=== PATIENT | male | born 1960 | race Caucasian/White ===

== ENCOUNTER → 2017-12-14 12:16 | Outpatient (CLI) | payer OTHER, SELFPAY | PROVIDERS: Family Provider Nurse Practitioner; PCP Nurse Practitioner; Visit Provider Radiology Radiation Oncology | DX: C01 Malignant neoplasm of base of tongue (principal); C77.0 Secondary and unspecified malignant neoplasm of lymph nodes of head, face and neck; C02.8 Malignant neoplasm of overlapping sites of tongue | CPT/HCPCS: 77014; Q9967 ==

== ENCOUNTER 2018-01-24 11:54 | Emergency (ER) | payer OTHER, SELFPAY ==
[2018-01-24] VITALS (7 sets, daily range): BP systolic 105–135; BP diastolic 67–79; PULSE 41–71; RESP 12–16; TEMP 35.9; O2SAT 97–99; BMI 40.9
--- NOTE | 2018-01-24 12:27 | RAD_ITS ---
STUDY: X-RAY CHEST REASON FOR EXAM: Male, 57 years old. Syncope. TECHNIQUE: Single AP portable view of the chest. COMPARISON: None. FINDINGS: EKG electrodes are seen. The lungs are clear and expanded. Blunting of the left costophrenic angle. Normal size heart. Normal mediastinum and denia. Normal visualized pulmonary arteries. Normal visualized aortic arch and descending thoracic aorta. There are diffuse degenerative changes of the visualized thoracic spine. Healed left rib fractures. There is no demonstrated abnormality of the visualized soft tissue structures of the upper abdomen. RAD/Chest 1 View (Portable) IMPRESSION: No acute abnormality is seen. Electronically Signed: Berhane Stone MD at 13:32 EDT Tel [phone], Service support ,
--- NOTE | 2018-01-24 12:27 | EKG12_ITS ---
Test Reason : Blood Pressure : / mmHG Vent. Rate : 047 BPM Atrial Rate : 047 BPM P-R Int : 144 ms QRS Dur : 110 ms QT Int : 448 ms P-R-T Axes : 028 -08 005 degrees QTc Int : 396 ms Sinus bradycardia Otherwise normal ECG Confirmed by PRECIOUS HI ([id number]), editorial clerk TRE MONSIVAIS ([id number]) on 01/27/2018 2:34:26 PM Referred By: LILIANA Confirmed By:PRECIOUS HI
[2018-01-24] MEDS: 0.9% Normal Saline 1,000 ML 1000 ML IV (12:36)
[2018-01-24 12:54] LABS: Hematocrit 37.7 % (40-54); Hemoglobin 13.2 g/dl (13.0-16.5); Mean Corpuscular Volume 88.5 fL (80-94); Mean Platelet Vol. 9.4 fl (6.2-12.0); Platelet Count 150 K/mm3 (150-450); RBC Distribution Width CV 14.7 % (11.6-14.6); RBC Distribution Width SD 45.5 fl (35.1-43.9); Red Blood Count 4.26 M/mm3 (4.6-6.2); White Blood Count 4.7 K/mm3 (4.4-11.0)
[2018-01-24 12:58] LABS: Anion Gap 9 (5-15); BUN 15 mg/dL (7-18); BUN/Creat Ratio 12.7 RATIO (10-20); Calcium,Total 8.9 mg/dL (8.5-10.1); Chloride 96 mmol/L (98-107); Creatinine, Serum 1.18 mg/dL (0.70-1.30); EST Glomerular Filtration Rate 68 mL/min (>60); Est Glom Filt Rate - Afr Amer 82 mL/min (>60); Estimated Creatinine Clearance 63.08 ml/min; Glucose 88 mg/dL (74-106); Magnesium 1.9 mg/dL (1.6-2.6); Potassium 3.4 mmol/L (3.5-5.1); Sodium Level 137 mmol/L (136-145); Thyroid Stim Hormone (TSH) 1.66 uIU/mL (0.358-3.74)
[2018-01-24 12:59] LABS: Differential Indicated MANUAL DIFF; POSITIVE COUNT YES; POSITIVE DIFFERENTIAL YES; POSITIVE MORPHOLOGY YES
[2018-01-24 13:18] LABS: Lymphocyte 8 % (19-41); Monocyte 14 % (0-10); Myelocyte 1 (0-0); Neutrophil-Segmented 77 % (47-70); Platelet Estimate ADEQUATE (ADEQ); Total Cells Counted 100 (MANUAL DIFF)
[2018-01-24 13:19] LABS: Red Cell Morphology NORM C+C NORMAL (NORM C&C)
[2018-01-24 13:20] LABS: Absolute Lymphocyte Count 0.38 X10^3/ul (0.83-4.51); Absolute Neutrophil Count 3.6 X10^3/uL (2.0-7.7)
[2018-01-24] MEDS: 0.9% Normal Saline 1,000 ML 999 ML IV (15:42)
--- NOTE | 2018-01-24 16:05 | ED.VISSUMM ---
- ER Visit Summary Date of Service: 01/24/18 Chief Complaint: Syncope History of Present Illness: The patient is a 57 M sees Ivy Jorgemingo and Dr. Flynn. Patient reports that 5 days ago he was leaning against his truck and had been standing for approximately 1 hour. He began feeling lightheaded and he had a syncopal episode. He denies any associated nausea, diaphoresis, palpitations, shortness of breath, or chest pain. He did not have any seizure activity. No tongue biting or incontinence. Patient reports that since that time he does remain lightheaded and it increases when he stands. Of note he finished chemotherapy and radiation therapy 3 weeks ago for tongue cancer. He reports that he has been taking much less than usual p.o. States he has been nippling for the past 3 days. He has been getting IV fluids at the cancer center. Physical Examination: Vitals: 96.6, 130/78, 44, 16, 97 cm hypoxic. General: Well-nourished and well-developed. Head: Normocephalic atraumatic. Neck: Supple, no lymphadenopathy. No JVD. Nontender. Cardiovascular: Bradycardic regular rhythm. No murmurs. Respiratory: No respiratory distress. Clear to auscultation bilaterally. Abdominal: Soft, nontender, nondistended, normal bowel sounds. No guarding, rebound, or peritoneal signs. Back: Nontender. Extremities: Nontender, no edema. Skin: Normal color, no rash. Neurologic: Alert and oriented ?3. Cranial nerves II through XII are intact. Normal strength and sensation. Psych: Normal affect. Test Results: EKG is sinus bradycardia at 47 which is the only change from last September. Troponin 0 0.05. TSH is normal. Magnesium is normal. Chem-7 her potassium 3.4 chloride 96. CBC is marked for hematocrit 37.7, segmented neutrophils 77, leukocytes of 8. Chest x-ray shows no acute disease. Emergency Department Course and Treatment: Patient was given 2 L of normal saline. He did have positive orthostatic vital signs. His blood pressure decreased from 119/67 to 105/70 going from lying to standing. His heart rate increased from 48-71 going from lying to standing. Treatment Plan: Patient was discussed with Dr. Trujillo who does not feel that this is a cardiac problem. The patient does not need to have a pacemaker. He suggested the patient follow-up with his primary care physician and oncology to continue to get IV fluids while he is having a difficult time taking oral fluids. This was discussed with both Ivy Foster and Dr. Flynn. He will get more IV fluids in the cancer center tomorrow. His asked about changing his dose of Norvasc and I do think this is a reasonable course of action. He will have his Norvasc decreased from 10 mg a day to 5 mg a day while he gets over this. Return to the emergency department for any worsening symptoms. Disposition: To home in improved and stable condition. Impression: 1. Sinus bradycardia. 2. History of tongue cancer with poor p.o. intake. 3. Orthostatic hypotension. This note was generated with [employer] dictation software. It may contain incorrect words, spelling, and punctuation that were not noted in review of the chart prior to signing ED Disposition - Plan for ED Patient: Disposition: Home or Assisted Living Chief Complaint: Syncope Instructions: ED Bradycardia, ED Dehydration Prescriptions: Amlodipine [Norvasc] 5 mg PO DAILY #30 tablet Referrals: Ivy Foster [Primary Care Provider] - Tee Flynn MD [NON-STAFF] - 1 Day for another exam
[2018-01-25 13:57] LABS: Pathologist Review Reviewed
== END 2018-01-24 17:50 | disposition home or self-care (01) ==
PROVIDERS: Emergency Provider Emergency Medicine; Family Provider Nurse Practitioner; PCP Nurse Practitioner
DX: R00.1 Bradycardia, unspecified (principal); I95.1 Orthostatic hypotension; C02.9 Malignant neoplasm of tongue, unspecified; I10 Essential (primary) hypertension; Z79.899 Other long term (current) drug therapy; Z85.46 Personal history of malignant neoplasm of prostate; Z90.79 Acquired absence of other genital organ(s)
CPT/HCPCS: 71045; 80048; 83735; 84443; 84484; 85025; 93005; 96360; 96361; 99284; J7030; A4216

== ENCOUNTER → 2018-01-26 14:02 | Outpatient (CLI) | payer OTHER, SELFPAY ==
--- NOTE | 2018-01-26 14:08 | MRI_ITS ---
STUDY: MRI BRAIN WITH AND WITHOUT CONTRAST REASON FOR EXAM: Male, 57 years old. 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 10 ml of Gadavist contrast material was administered intravenously for the contrast portion of the examination. Sag T1 FLAIR Ax DWI Ax T2 PROPELLER Ax T2 FLAIR Ax T1 FSE Ax T2* GRE Cor T2 FSE Apparent Diffusion Coefficient (mm2/s) Exponential Apparent Diffusion Coefficient Ax T1 FSE C+ Cor T1 FSE FAT C+ Ax FSPGR [place] C+ COMPARISON: None. FINDINGS: Normal size of the ventricles and extra-axial spaces for the patient's age. Normal white matter tracts of the supratentorial brain. Normal bilateral basal ganglia. Normal thalami. There is no extra-axial fluid accumulation. Normal flow voids within the major intracranial circulation suggesting patency by spin echo criteria. Normal venous enhancement. There is no enhancing intra-axial or extra-axial abnormality. Normal sella turcica, pituitary gland, infundibular stalk, optic chiasm and hypothalamus. Normal tectal plate and pineal gland. Normal midbrain, gayle and medulla. Normal cerebellum. Normal basal cisterns. Normal bilateral temporal bones. Normal bilateral internal auditory canals. No demonstrated orbital abnormality, within the constraints of a routine brain study. There is mild mucoperiosteal thickening in the inferior left maxillary antrum. Normal calvarium and skull base. Normal visualized soft tissue structures. Normal visualized upper cervical spine. MRI/Brain W/WO Contrast IMPRESSION: Normal unenhanced and enhanced MRI of the brain. Electronically Signed: Gretchen Holden MD at 16:23 EDT Tel , Service support ,
== END ==
PROVIDERS: Family Provider Nurse Practitioner; PCP Nurse Practitioner; Visit Provider Internal Medicine Medical Oncology
DX: R42 Dizziness and giddiness (principal); R55 Syncope and collapse; C10.9 Malignant neoplasm of oropharynx, unspecified; R11.10 Vomiting, unspecified; M62.81 Muscle weakness (generalized); G44.221 Chronic tension-type headache, intractable; H93.19 Tinnitus, unspecified ear
CPT/HCPCS: 70553; A9585

== ENCOUNTER → 2018-02-07 11:56 | Outpatient (CLI) | payer OTHER, SELFPAY ==
--- NOTE | 2018-02-07 12:30 | SP.MBSS_ITS ---
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 Patient reports losing 78lbs since November of this year due to difficulties with intake (reports severe nausea, loss of appetite, dysgeusia, xerostomia, mild odynophagia), though reports that the majority of symptoms have resolved, with exception of mild to moderate xerostomia and mild loss of appetite. Patient reports initial significant dysphagia primarily with solid textures, with reports suggesting oropharyngeal dysmotility, reports occasional coughing (though minimal occurrence at best), with the majority of difficulties centering on appetite and nausea. Patient reports improvement in PO intake over the last week following administration of Promethazine suppository earlier in week, with gradual increase in PO intake quantity throughout week: denies overt signs and symptoms of aspiration. Patient reports no objective assessment of the oropharyngeal swallow function completed to date. 01/26/2018 MRI revealed normal unenhanced and enhanced MRI of the brain. 01/24/2018 CXR revealed no acute abnormality. 10/26/2017 CT/Soft Tissue Neck revealed stable lobulated soft tissue mass at the base of the tongue on the left side with obliteration of the left valleculae and extending into the left epiglottic region; focally enlarged left cervical lymph node. 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 09/17/2017 direct laryngoscopy and biopsy of left base of tongue mass (negative ). 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 STUDY FINDINGS: Patient participated in a Modified Barium Swallow (MBS) study on 02/07/2018. Dr. Gonzalez was the radiologist present for this evaluation. This study was recorded in the lateral view and images were sent to PACs for storage. The following consistencies were presented to this patient for analysis of oropharyngeal swallow function: thin liquids, pudding, and a regular textured, Nicole Doone cookie. Results of the MBS are as follows: PENETRATION / ASPIRATION SCALE (GAN): 1 = does not enter airway 2 = enters airway/above vocal folds/ejected 3 = enters airway/above vocal folds/not ejected 4 = enters airway/contacts vocal folds/ejected 5 = enters airway/contacts vocal folds/not ejected 6 = enters airway/below vocal folds/ejected 7 = enters airway/below vocal folds/not ejected despite effort 8 = enters airway/below vocal folds/no effort PENETRATION / ASPIRATION SCALE (SCORE): Thin liquid - 5 mL tsp.: 1 Thin liquids via cup (sequential swallows): 2 Thin liquids via cup (single sip): 2 Thin liquids via cup (chin tuck): 1 Thin liquids via cup (chin tuck): 2 Thin liquids via cup (chin tuck): 1 Thin liquids via cup (chin tuck): 1 Pudding via spoon: 1 Regular textured cookie: 1 Thin liquids via straw (chin tuck): 1 IMPRESSION: DIAGNOSIS: mild pharyngeal dysphagia (R13.13) ORAL PHASE CHARACTERIZED BY: LABIAL SEAL: no labial escape TONGUE CONTROL DURING BOLUS MANIPULATION: cohesive bolus between tongue to palatal seal BOLUS PREPARATION / MASTICATION: timely and efficient chewing and mashing BOLUS TRANSPORT / LINGUAL MOTION: brisk tongue motion ORAL RESIDUE: trace residue lining oral structures PHARYNGEAL PHASE CHARACTERIZED BY: INITIATION OF PHARYNGEAL SWALLOW: bolus head at posterior laryngeal surface of epiglottis at first hyoid excursion SOFT PALATE ELEVATION: no bolus between soft palate and pharyngeal wall LARYNGEAL ELEVATION: partial superior movement of thyroid cartilage/partial approximation of arytenoids cartilage to epiglottic petiole ANTERIOR HYOID EXCURSION: complete anterior movement EPIGLOTTIC MOVEMENT: complete epiglottic inversion LARYNGEAL VESTIBULE CLOSURE AT HEIGHT OF SWALLOW: complete laryngeal vestibule closure with no air/contrast in laryngeal vestibule PHARYNGEAL STRIPPING WAVE: pharyngeal stripping wave present / complete PHARYNGOESOPHAGEAL SEGMENT OPENING: partial distension and partial duration; partial obstruction of flow TONGUE BASE RETRACTION: trace column of contrast between tongue base and posterior pharyngeal wall PHARYNGEAL RESIDUE: intermittent trace residue within or on pharyngeal structures ESOPHAGEAL PHASE CHARACTERIZED BY: ESOPHAGEAL BOLUS CLEARANCE IN THE UPRIGHT POSITION: complete clearance; esophageal coating EFFECTS OF TREATMENT STRATEGIES ATTEMPTED: Chin tuck posture = effective Reduced bolus size = effective DIET TEXTURE RECOMMENDATIONS: Will recommend a regular textured, thin liquid diet. COMPENSATORY STRATEGIES RECOMMENDED: Chin tuck, reduced bolus volume, seated upright at 90 degrees during PO intake. INTERPRETATION OF RESULTS: Patient presents with mild pharyngeal dysphagia (R13.13) secondary to a recent malignant neoplasm of the oropharynx requiring chemoradiation. Oral phase findings unremarkable. Pharyngeal phase marked by impaired pharyngeal swallow onset timing resulting in suboptimal bolus location upon swallow onset resulting in prandial penetration with thin liquids; adequate closure of the airway during deglutition with mild reduction in laryngeal elevation, though clinically insignificant with sufficient laryngeal vestibule pressure generated to consistently expel penetrated material throughout study. All deficits ameliorated with bolus volume adjustments and execution of the chin tuck posture. No aspiration appreciated throughout trials, unable to definitively rule out silent aspiration, though not suspected. RECOMMENDATIONS: Patient requires 1-2 additional skilled speech-language intervention targeting continued diet texture management; training and implementation of recommended compensatory strategies; and training / implementation of recommended oropharyngeal strengthening exercises to prevent loss of oropharyngeal range of motion status post radiation intervention. Continue to recommend aggressive oral care with regular dental cleanings to promote optimal oral health and reduce aspiration risk. Recommend frequent intake of water with use of oral moisturizers as needed to reduce impact of xerostomia. ADDITIONAL COMMENTS/RECOMMENDATIONS: Results and recommendations were discussed with the Patient immediately following MBS completion, with the Patient verbalizing understanding and agreement with all recommendations and education provided. IMAGE COUNT: [id number] G-CODES: SWALLOWING G8996 Current Status: CI SWALLOWING G8997 Goal Status: CH SWALLOWING G8998 Discharge Status: CI
--- NOTE | 2018-02-07 12:45 | RAD_ITS ---
STUDY: SWALLOWING STUDY REASON FOR EXAM: Male, 57 years old. Dysphagia TECHNIQUE: The examination was performed with Speech Pathology in attendance. Under fluoroscopic observation, the patient ingested thin barium, thick barium, barium pudding, and barium coated cracker. FLUOROSCOPY TIME: 2:00 minutes/seconds RADIOLOGIST INVOLVEMENT: Radiologist was present and providing direct supervision. COMPARISON: None. FINDINGS: The following was observed during swallowing of the various mixtures of barium: Thin Barium: There was no evidence of aspiration. Transient penetration is noted with improved with chin talk maneuvers. Thick Barium: There was no evidence of aspiration or laryngeal penetration. Barium Pudding: There was no evidence of aspiration or laryngeal penetration. Barium Coated Cracker: There was no evidence of aspiration or laryngeal penetration. RAD/Swallowing Function w/Video IMPRESSION: Normal tailored barium swallow study. No evidence of increased risk for aspiration. The swallow study findings were discussed with the patient by the speech pathologist at the conclusion of the examination. Please see speech pathology report for more information and recommendations. The procedure was performed by speech therapist under the direct supervision of myself. Electronically Signed: Franko Gonzalez MD at 14:50 EDT Tel , Service support ,
== END ==
PROVIDERS: Family Provider Nurse Practitioner; PCP Nurse Practitioner; Visit Provider Internal Medicine Medical Oncology
DX: R13.12 Dysphagia, oropharyngeal phase (principal); C10.9 Malignant neoplasm of oropharynx, unspecified
CPT/HCPCS: 74230; 92611

== ENCOUNTER 2018-02-10 14:00 | Outpatient (RCR) | payer OTHER, SELFPAY ==
--- NOTE | 2018-02-03 17:42 | HP.SP.AD ---
History - History Date of Eval: 02/03/18 Referring Doctor: Dr. 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 Smoking Status: Never smoker Hx Smoking: No Hx Tobacco Use: No - Pain Is pain an issue with your current prescribed condition?: No - Personal Education History: 12th grade Right Hearing Abillity: Normal Left Hearing Abillity: Normal Visual Assistive Devices: None Patient Allergies - Allergies Allergies Penicillins Adverse Reaction (Verified 01/27/18 15:52) Other DOES NOT WORK Subjective Oral Motor - Comments Comments: Mild whitish coating along the medial portions of the lingual blade suggestive of oral candidiasis, reports recent treatment with Nystatin, though has discontinued since PO intake has improved. Natural dentition with multiple missing teeth, noted recession with Patient reporting periodontal care initiated prior to chemoradiation. Mild vocal hoarseness noted. Subjective Dysphagia - Symptoms Reported Symptoms/Problems with: Coughing, Difficulty Swallowing Solids, Pain on Swallowing - Current Diet Solids Current Diet: Regular - Current Diet Liquids Current Liquids: Thin Objective Dysphagia - Thin Liquids Administred via: Cup, Straw Comments: Trialed thin liquids, purees, and regular textures. Oral phase: mastication within functional limits; oral transit within functional limits; oral containment within functional limits. Pharyngeal phase: mild reduction in hyolaryngeal excursion suggestive of suboptimal laryngeal vestibule closure / pressure; mild persistent audible swallow possibly indicating suboptimal bolus placement upon swallow onset; intermittent double swallow possibly indication mild impairment in pharyngeal motility; suspect mild pharyngeal impairment. Cannot rule out silent aspiration at bedside. - Results Swallowing Diagnosis: Pharyngeal Phase Dysphagia Severity: Mild Subjective Cancer - Subjective Subjective: Patient is a 57 year old male referred to [facility] Speech Therapy due to concerns with swallowing associated with a malignant neoplasm of the oropharynx (C10.9) located at the left lingual base (stage III; cT2 cN1 M0, 1.5cm) requiring chemoradiation (chemotherapy x3 with Cisplatin IV , radiation x35 sessions since November of this year) and concurrent oropharyngeal dysphagia (R13.12). Patient reports losing 78lbs since November of this year due to difficulties with intake (reports severe nausea, loss of appetite, dysgeusia, xerostomia, mild odynophagia), though reports that the majority of symptoms have resolved, with exception of mild to moderate xerostomia and mild loss of appetite. Patient reports initial significant dysphagia primarily with solid textures, with reports suggesting oropharyngeal dysmotility, reports occasional coughing (though minimal occurrence at best), with the majority of difficulties centering on appetite and nausea. Patient reports improvement in PO intake over the last week following administration of Promethazine suppository earlier in week, with gradual increase in PO intake quantity throughout week: denies overt signs and symptoms of aspiration. Patient reports no objective assessment of the oropharyngeal swallow function completed to date. 01/26/2018 MRI revealed normal unenhanced and enhanced MRI of the brain. 01/24/2018 CXR revealed no acute abnormality. 10/26/2017 CT/Soft Tissue Neck revealed stable lobulated soft tissue mass at the base of the tongue on the left side with obliteration of the left valleculae and extending into the left epiglottic region; focally enlarged left cervical lymph node. 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 09/17/2017 direct laryngoscopy and biopsy of left base of tongue mass (negative). Plan - Plan Plan: Will recommend completion of a modified barium swallow study to objectively assess the Patients oropharyngeal swallow function under fluoroscopy, with further goal development upon completion. - Recommendations MBS: Yes Treatment Warranted: Yes - Frequency Frequency: 1x/Week Duration: 4 Weeks - Prognosis Prognosis: Excellent - Goals that are Established: Determination:: Goals will be added/modified as deemed necessary and appropriate. Therapy will be discontinued when results of re-evaluation indicate therapy is no longer needed or lack of progress has been documented. - Goal #1-5 Goal #1: Pt. will participate in a Modified Barium Swallow (MBS) study to objectively assess the Pt.s oropharyngeal swallowing function, to determine the least restrictive means of nutrition, to objectively assess the effectiveness of previously identified strategies / precautions, and to identify appropriate intervention approaches / strategies to implement during treatment sessions at the supervised level Goal #2: Goal adjustment as needed. Education - Patient Instruction Patient Education: Diagnosis, Treatment Plan, Goals Person Taught: Patient Teaching Method: Discussion Response to teaching: Verbalize understanding
--- NOTE | 2018-02-03 17:45 | HP.SP.AD_ITS ---
History - History Date of Eval: 02/03/18 Referring Doctor: Dr. 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 Smoking Status: Never smoker Hx Smoking: No Hx Tobacco Use: No - Pain Is pain an issue with your current prescribed condition?: No - Personal Education History: 12th grade Right Hearing Abillity: Normal Left Hearing Abillity: Normal Visual Assistive Devices: None Patient Allergies - Allergies Allergies Penicillins Adverse Reaction (Verified 01/27/18 15:52) Other DOES NOT WORK Subjective Oral Motor - Comments Comments: Mild whitish coating along the medial portions of the lingual blade suggestive of oral candidiasis, reports recent treatment with Nystatin, though has discontinued since PO intake has improved. Natural dentition with multiple missing teeth, noted recession with Patient reporting periodontal care initiated prior to chemoradiation. Mild vocal hoarseness noted. Subjective Dysphagia - Symptoms Reported Symptoms/Problems with: Coughing, Difficulty Swallowing Solids, Pain on Swallowing - Current Diet Solids Current Diet: Regular - Current Diet Liquids Current Liquids: Thin Objective Dysphagia - Thin Liquids Administred via: Cup, Straw Comments: Trialed thin liquids, purees, and regular textures. Oral phase: mastication within functional limits; oral transit within functional limits; oral containment within functional limits. Pharyngeal phase: mild reduction in hyolaryngeal excursion suggestive of suboptimal laryngeal vestibule closure / pressure; mild persistent audible swallow possibly indicating suboptimal bolus placement upon swallow onset; intermittent double swallow possibly indication mild impairment in pharyngeal motility; suspect mild pharyngeal impairment. Cannot rule out silent aspiration at bedside. - Results Swallowing Diagnosis: Pharyngeal Phase Dysphagia Severity: Mild Subjective Cancer - Subjective Subjective: Patient is a 57 year old male referred to [facility] Therapy due to concerns with swallowing associated with a malignant neoplasm of the oropharynx (C10.9) located at the left lingual base (stage III; cT2 cN1 M0, 1.5cm) requiring chemoradiation ( chemotherapy x3 with Cisplatin IV , radiation x35 sessions since November of this year) and concurrent oropharyngeal dysphagia (R13.12). Patient reports losing 78lbs since November of this year due to difficulties with intake ( reports severe nausea, loss of appetite, dysgeusia, xerostomia, mild odynophagia ), though reports that the majority of symptoms have resolved, with exception of mild to moderate xerostomia and mild loss of appetite. Patient reports initial significant dysphagia primarily with solid textures, with reports suggesting oropharyngeal dysmotility, reports occasional coughing (though minimal occurrence at best), with the majority of difficulties centering on appetite and nausea. Patient reports improvement in PO intake over the last week following administration of Promethazine suppository earlier in week, with gradual increase in PO intake quantity throughout week: denies overt signs and symptoms of aspiration. Patient reports no objective assessment of the oropharyngeal swallow function completed to date. 01/26/2018 MRI revealed normal unenhanced and enhanced MRI of the brain. 01/24/2018 CXR revealed no acute abnormality. 10/26/2017 CT/Soft Tissue Neck revealed stable lobulated soft tissue mass at the base of the tongue on the left side with obliteration of the left valleculae and extending into the left epiglottic region; focally enlarged left cervical lymph node. 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 09/17/2017 direct laryngoscopy and biopsy of left base of tongue mass (negative). Plan - Plan Plan: Will recommend completion of a modified barium swallow study to objectively assess the Patients oropharyngeal swallow function under fluoroscopy , with further goal development upon completion. - Recommendations MBS: Yes Treatment Warranted: Yes - Frequency Frequency: 1x/Week Duration: 4 Weeks - Prognosis Prognosis: Excellent - Goals that are Established: Determination:: Goals will be added/modified as deemed necessary and appropriate. Therapy will be discontinued when results of re-evaluation indicate therapy is no longer needed or lack of progress has been documented. - Goal #1-5 Goal #1: Pt. will participate in a Modified Barium Swallow (MBS) study to objectively assess the Pt.?s oropharyngeal swallowing function, to determine the least restrictive means of nutrition, to objectively assess the effectiveness of previously identified strategies / precautions, and to identify appropriate intervention approaches / strategies to implement during treatment sessions at the supervised level Goal #2: Goal adjustment as needed. Education - Patient Instruction Patient Education: Diagnosis, Treatment Plan, Goals Person Taught: Patient Teaching Method: Discussion Response to teaching: Verbalize understanding
--- NOTE | 2018-08-17 15:54 | HP.SP.DC ---
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 Patient was scheduled to attend 1 additional follow up session, though was unable to attend, without any further issues regarding his swallowing abilities reported. Will discharge from the caseload at this time. G-CODES: SWALLOWING G8996 Current Status: CI. SWALLOWING G8997 Goal Status: CH. SWALLOWING G8998 Discharge Status: CH
== END 2018-02-10 19:00 | disposition home or self-care (01) ==
LOC: SP 14:00
PROVIDERS: Family Provider Nurse Practitioner; PCP Nurse Practitioner; Visit Provider Internal Medicine Medical Oncology
DX: R13.12 Dysphagia, oropharyngeal phase (principal); R47.89 Other speech disturbances; C10.9 Malignant neoplasm of oropharynx, unspecified
CPT/HCPCS: 92526; 92610

== ENCOUNTER → 2018-02-15 10:27 | Outpatient (CLI) | payer OTHER, SELFPAY ==
[2018-02-15 11:50] LABS: PSA,Total- Diagnostic < 0.01 ng/mL (0.0-4.0)
== END ==
PROVIDERS: Family Provider Nurse Practitioner; PCP Nurse Practitioner; Visit Provider Urology
DX: C61 Malignant neoplasm of prostate (principal)
CPT/HCPCS: 36415; 84153

== ENCOUNTER → 2018-02-17 10:16 | Outpatient (CLI) | payer OTHER, SELFPAY ==
--- NOTE | 2018-02-17 10:21 | ECHOD_ITS ---
Reason For Study: SYNCOPE Procedure This was a 2D Doppler, Color Flow transthoracic echocardiogram. Contrast injection was performed. Exam performed in department. Left Ventricle Normal size and thickness. The estimated ejection fraction is 45-50 %. Normal diastology for age. There is mild to moderate global hypokinesis of the left ventricle. Right Ventricle Normal size and thickness. Normal systolic function. Atria The left atrium is mildly enlarged. Normal right atrium. Normal atrial septum. Mitral Valve The mitral valve is structurally normal. No prolapse or stenosis seen. Tricuspid Valve Normal tricuspid valve. Mild (1+) tricuspid valve insufficiency. Right ventricular systolic pressure estimated to be 30 mmHg. Aortic Valve Normal aortic valve. Trisinus/trileaflet aortic valve. Pulmonic Valve Normal pulmonic valve. Great Vessels Normal aortic root. Normal arch. Normal inferior vena cava. Inferior vena cava collapse with sniff. Pericardium/Pleural No pericardial effusion. Medication 22 gauge I.V. with prn adaptor inserted into left arm. Diluted definity 4ml given slow IV push to enhance endocardial definition. MMode/2D Measurements & Calculations LVIDd: 4.4 cm IVSd: 1.0 cm Ao root diam: 3.6 cm LVPWd: 0.78 cm LA dimension: 4.7 cm LAV(MOD-bp): 69.1 ml EDV(MOD-sp4): 124.9 ml EDV(MOD-sp2): 107.7 ml LAV(MOD-bp) Indexed: 30.3 ml/m2 ESV(MOD-sp4): 56.0 ml EF(MOD-sp2): 62.0 % LAV(MOD-sp2): 57.5 ml EF(MOD-sp4): 55.1 % LAV(MOD-sp4): 84.1 ml SV(MOD-sp4): 68.9 ml SV(MOD-sp2): 66.7 ml LA A4 area: 25.1 cm2 RA A4 area: 21.9 cm2 Doppler Measurements & Calculations MV E max johnna: 75.9 cm/sec Ao V2 max: 135.5 cm/sec LV V1 max: 105.7 cm/sec MV A max johnna: 77.1 cm/sec Ao max P.3 mmHg LV V1 max P.5 mmHg MV E/A: 0.99 TR max johnna: 250.0 cm/sec TR max P.0 mmHg Interpretation Summary The estimated ejection fraction is 45-50 %. Normal diastology for age. There is mild to moderate global hypokinesis of the left ventricle. The left atrium is mildly enlarged. Mild (1+) tricuspid valve insufficiency. Right ventricular systolic pressure estimated to be 30 mmHg. Compared to echo report dated 04/14/2013, no appreciable changes noted. The study was technically difficult. Contrast injection was performed. Ordering Physician: Ciesa, Ivy Referring Physician: Ivy Foster Performed By: Zara Diaz, CLIFF, RVT
== END ==
PROVIDERS: Family Provider Nurse Practitioner; PCP Nurse Practitioner; Visit Provider Nurse Practitioner
DX: R55 Syncope and collapse (principal)
CPT/HCPCS: 93306; Q9957; A4216; C8929

== ENCOUNTER → 2018-05-02 07:32 | Outpatient (CLI) | payer BC, SELFPAY ==
--- NOTE | 2018-05-02 07:35 | CT_ITS ---
STUDY: CT SOFT TISSUE NECK WITH CONTRAST REASON FOR EXAM: Male, 57 years old. History of a malignant neoplasm of the oropharynx. RADIATION DOSAGE (If Supplied By Facility): CTDIvol = ( 21.05 ) mGy, DLP = ( 530.93 ) mGycm TECHNIQUE: The patient was scanned in a multi-detector CT scanner. High resolution transaxial imaging was performed following intravenous administration of 75 ml of Isovue 370 contrast material. Sagittal and coronal images were reconstructed. Individualized dose optimization techniques were used for this CT. COMPARISON: Comparison is made with prior examination dated October 26, 2017 and September 11, 2017. FINDINGS: Increased markings are seen within the subcutaneous fat in the region of the neck suggestive of a possible edematous changes secondary to radiation and/or chemotherapy. Normal bilateral parotid glands. Normal bilateral eco industrial development consultant spaces. Normal bilateral parapharyngeal spaces. Normal bilateral carotid spaces. Normal bilateral sublingual and submandibular glands and spaces. Normal visualized nasopharynx. Normal retropharyngeal space. Normal perivertebral space. The previously seen 4 cm x 3 cm lobulated soft tissue mass at the base of the tongue on the left side at the level of the hyoid bone and cephalad to the hyoid bone is not seen at this time. The previously seen enlarged lymph node at the level 3 on the left side has resolved as well. There is no demonstrated solid or cystic mass lesion. There is no abnormal contrast enhancement. Normal epiglottis, bilateral vallecula and hypopharynx. The pre-epiglottic and paraglottic adipose spaces are normal. Normal visualized bilateral piriform sinuses, aryepiglottic folds, vocal cords, and arytenoid-cricoid articulations. Normal subglottic trachea. Normal bilateral lobes of the thyroid gland. Normal visualized pulmonary apices. Normal visualized paranasal sinuses. Normal visualized cervical spine. CT/Soft Tissue Neck WITH Contrast IMPRESSION: The previously seen mass at the base of the tongue on the left side with enlargement of the lymph node at level [address] resolved. Findings suggestive subcutaneous edema in the region of the neck. Electronically Signed: Berhane Stone MD at 8:30 EDT Tel [phone], Service support ,
[2018-05-02 07:49] LABS: CREATININE FINGERSTICK 1.1 mg/dL (0.70-1.30); EGFR FINGERSTICK > 60.0000 mL/min (>60)
== END ==
PROVIDERS: Family Provider Nurse Practitioner; PCP Nurse Practitioner; Visit Provider Nurse Practitioner Family
DX: C10.9 Malignant neoplasm of oropharynx, unspecified (principal)
CPT/HCPCS: 70491; Q9967

== ENCOUNTER → 2018-08-16 08:21 | Outpatient (CLI) | payer BC, SELFPAY ==
[2018-08-16 09:43] LABS: PSA,Total- Diagnostic 0.01 ng/mL (0.0-4.0)
== END ==
PROVIDERS: Family Provider Nurse Practitioner; PCP Nurse Practitioner; Referring Provider Urology; Visit Provider Urology
DX: C61 Malignant neoplasm of prostate (principal)
CPT/HCPCS: 36415; 84153

== ENCOUNTER → 2018-09-30 08:21 | Outpatient (CLI) | payer BC, SELFPAY | PROVIDERS: Family Provider Nurse Practitioner; PCP Nurse Practitioner; Referring Provider Nurse Practitioner; Visit Provider Nurse Practitioner | DX: R00.1 Bradycardia, unspecified (principal) | CPT/HCPCS: 93225; 93226 ==

== ENCOUNTER → 2018-10-28 08:52 | Outpatient (CLI) | payer BC, SELFPAY ==
[2018-05-12 10:56] VITALS: BMI 38.4
[2018-10-28 09:09] LABS: Absolute Lymphocyte Count 0.56 X10^3/ul (0.83-4.51); Absolute Neutrophil Count 2.1 X10^3/uL (2.0-7.7); Basophil# 0.01 X10^3/uL; Basophil% 0.3 % (0-1); Differential Indicated SCAN CRITERIA MET; Eosinophil# 0.03 X10^3/uL; Hematocrit 41.1 % (40-54); Hemoglobin 13.7 g/dl (13.0-16.5); Lymphocyte # 0.56 X10^3/ul (4.0); Mean Corp Hgb Conc 33.3 g/gl (32-36); Mean Corpuscular Hgb 31.4 pg (27.0-32.0); Mean Corpuscular Volume 94.3 fL (80-94); Mean Platelet Vol. 8.7 fl (6.2-12.0); Monocyte# 0.26 X10^3/uL; Monocyte% 8.8 % (0-10); Neutrophil # 2.09 X10^3/uL (2.7-7.7); Neutrophil % 70.9 % (47-70); POSITIVE COUNT NO; POSITIVE DIFFERENTIAL YES; POSITIVE MORPHOLOGY NO; Platelet Count 165 K/mm3 (150-450); RBC Distribution Width CV 12.7 % (11.6-14.6); RBC Distribution Width SD 43.7 fl (35.1-43.9); Red Blood Count 4.36 M/mm3 (4.6-6.2)
--- NOTE | 2018-10-28 09:13 | CT_ITS ---
STUDY: CT CHEST WITH CONTRAST REASON FOR EXAM: Male, 58 years old. Base of the tongue neoplasm, history of radiation chemotherapy and surgery; restaging RADIATION DOSAGE (If Supplied By Facility): CTDIvol = ( 23.93 ) mGy, DLP = ( 740.98 ) mGycm TECHNIQUE: Transaxial imaging was performed following intravenous administration of 100mL ml of Isovue 300 contrast material. Multiplanar coronal and sagittal images were reformatted. Individualized dose optimization techniques were used for this CT. COMPARISON: PET scan from 10/25/2017 FINDINGS: The lungs are normal. There is no demonstrated pleural abnormality. Normal heart and pericardium. There are calcifications of the coronary arteries. Normal mediastinum. Normal hilar regions. Normal enhanced pulmonary arteries. Normal aorta arch and descending thoracic aorta. Old left rib fractures but no lytic or sclerotic bone lesion is identified. Degenerative changes of the thoracic spine. There is no demonstrated abnormality of the visualized upper abdomen. CT/Chest WITH Contrast IMPRESSION: 1. No pulmonary nodule or intrathoracic adenopathy/metastasis. Electronically Signed: Terence Quiroz MD at 9:43 EST , Service support ,
--- NOTE | 2018-10-28 09:14 | CT_ITS ---
STUDY: CT SOFT TISSUE NECK WITH CONTRAST REASON FOR EXAM: Male, 58 years old. Tongue neoplasm, clinical follow-up RADIATION DOSAGE (If Supplied By Facility): CTDIvol = ( 23.31 ) mGy, DLP = ( 975.60 ) mGycm TECHNIQUE: The patient was scanned in a multi-detector CT scanner. High resolution transaxial imaging was performed following intravenous administration of 100mL ml of Isovue 300 contrast material. Sagittal and coronal images were reconstructed. Individualized dose optimization techniques were used for this CT. COMPARISON: None. FINDINGS: Normal bilateral parotid glands. Normal bilateral ski maker spaces. Normal bilateral parapharyngeal spaces. Normal bilateral carotid spaces. Normal bilateral sublingual and submandibular glands and spaces. Normal visualized nasopharynx. Normal retropharyngeal space. Normal perivertebral space. Normal visualized bilateral faucial tonsils. The visualized tongue, tongue base and oropharynx are normal. The visualized cervical lymph nodes (levels I-) are within normal size limits, and maintain normal morphology. There is no demonstrated solid or cystic mass lesion. There is no abnormal contrast enhancement. Normal epiglottis, bilateral vallecula and hypopharynx. The pre-epiglottic and paraglottic adipose spaces are normal. Normal visualized bilateral piriform sinuses, aryepiglottic folds, vocal cords, and arytenoid-cricoid articulations. Normal subglottic trachea. Normal bilateral lobes of the thyroid gland. Upper lung garza described on chest CT performed concurrently. Normal visualized paranasal sinuses. Normal visualized cervical spine. Mild superficial edema (superficial to the platysma) bilaterally similar since the prior study. CT/Soft Tissue Neck WITH Contrast IMPRESSION: 1. Since 05/02/2018, stable exam. No mass or adenopathy detected. Electronically Signed: Terence Quiroz MD at 9:41 EST , Service support ,
[2018-10-28 09:31] LABS: ALB/GLOB Ratio 1.1 RATIO (0.9-2.4); AST(SGOT) 14 U/L (15-37); Alanine Aminotransfer ALT/SGPT 26 U/L (16-61); Albumin, Serum 3.4 g/dL (3.2-5.0); Alkaline Phosphatase 61 U/L (45-117); Anion Gap 8 (5-15); BUN 18 mg/dL (7-18); Calcium,Total 8.5 mg/dL (8.5-10.1); Chloride 109 mmol/L (98-107); Creatinine, Serum 0.95 mg/dL (0.70-1.30); EST Glomerular Filtration Rate 87 mL/min (>60); Est Glom Filt Rate - Afr Amer 105 mL/min (>60); Glucose 97 mg/dL (74-106); Potassium 4.5 mmol/L (3.5-5.1); Protein, Total 6.4 g/dL (6.4-8.2); Sodium Level 143 mmol/L (136-145); T4 Free Direct 0.86 ng/dL (0.76-1.46); Thyroid Stim Hormone (TSH) 3.19 uIU/mL (0.358-3.74)
[2018-10-28 16:58] LABS: Xtra Tube EP Lab EXTRA TUBE
== END ==
PROVIDERS: Family Provider Nurse Practitioner; PCP Nurse Practitioner; Referring Provider Internal Medicine Medical Oncology; Visit Provider Internal Medicine Medical Oncology
DX: C01 Malignant neoplasm of base of tongue (principal)
CPT/HCPCS: 36415; 70491; 71260; 80053; 84439; 84443; 85025; Q9967

== ENCOUNTER → 2018-11-07 09:08 | Outpatient (CLI) | payer BC, SELFPAY ==
[2018-11-03 10:27] VITALS: BMI 39.1
[2018-11-07 11:01] LABS: Thyroid Stim Hormone (TSH) 9.26 uIU/mL (0.358-3.74)
== END ==
PROVIDERS: Family Provider Nurse Practitioner; PCP Nurse Practitioner; Referring Provider Otolaryngology; Visit Provider Otolaryngology
DX: E03.9 Hypothyroidism, unspecified (principal)
CPT/HCPCS: 36415; 84443

== ENCOUNTER → 2019-02-09 08:10 | Outpatient (CLI) | payer BC, SELFPAY ==
[2018-11-03 10:27] VITALS: BMI 39.1
[2019-02-09 10:34] LABS: PSA,Total- Diagnostic 0.04 ng/mL (0.0-4.0)
== END ==
PROVIDERS: Family Provider Nurse Practitioner; PCP Nurse Practitioner; Referring Provider Urology; Visit Provider Urology
DX: C61 Malignant neoplasm of prostate (principal)
CPT/HCPCS: 36415; 84153

== ENCOUNTER → 2019-07-31 06:36 | Outpatient (CLI) | payer BC, SELFPAY ==
[2019-05-01 11:09] VITALS: BMI 42.6
--- NOTE | 2019-07-31 06:38 | CT_ITS ---
STUDY: CT CHEST WITH CONTRAST REASON FOR EXAM: Male, 59 years old. Follow-up for oropharyngeal carcinoma. Prior chemotherapy. History of prostate cancer and radiation therapy. RADIATION DOSAGE (If Supplied By Facility): CTDIvol = ( 25.10 ) mGy, DLP = ( 1503.56 ) mGycm TECHNIQUE: Transaxial imaging was performed following intravenous administration of 100 IV Isovue 300. Multiplanar coronal and sagittal images were reformatted. Individualized dose optimization techniques were used for this CT. COMPARISON: Comparison is made with prior study dated October 28, 2018. FINDINGS: The lungs are normal. There is no demonstrated pleural abnormality. Normal heart and pericardium. Normal mediastinum. Normal hilar regions. Normal enhanced pulmonary arteries. Normal aorta arch and descending thoracic aorta. There are degenerative changes of the thoracic spine. Healed left rib fractures. There is no demonstrated abnormality of the visualized upper abdomen. CT/Chest WITH Contrast IMPRESSION: Stable examination. No acute abnormality is seen. Electronically Signed: Berhane Stone, at 11:11 EDT , Service support ,
--- NOTE | 2019-07-31 06:38 | CT_ITS ---
STUDY: CT SOFT TISSUE NECK WITH CONTRAST REASON FOR EXAM: Male, 59 years old. Follow-up for oropharyngeal carcinoma and chemotherapy. History of prior prostate cancer and radiation therapy. RADIATION DOSAGE (If Supplied By Facility): CTDIvol = ( 25.10 ) mGy, DLP = ( 1503.56 ) mGycm TECHNIQUE: The patient was scanned in a multi-detector CT scanner. High resolution transaxial imaging was performed following intravenous administration of 100 IV Isovue 300. Sagittal and coronal images were reconstructed. Individualized dose optimization techniques were used for this CT. COMPARISON: Comparison is made with prior examination dated October 28, 2018 FINDINGS: Once again, a mild degree of increased markings are seen within the subcutaneous fat in the region of the neck. This most likely represents post radiation therapy changes. Normal bilateral parotid glands. Normal bilateral puzzle assembler spaces. Normal bilateral parapharyngeal spaces. Normal bilateral carotid spaces. Normal bilateral sublingual and submandibular glands and spaces. Normal visualized nasopharynx. Normal retropharyngeal space. Normal perivertebral space. Normal visualized bilateral faucial tonsils. The visualized tongue, tongue base and oropharynx are normal. The visualized cervical lymph nodes (levels I-) are within normal size limits, and maintain normal morphology. There is no demonstrated solid or cystic mass lesion. There is no abnormal contrast enhancement. Normal epiglottis, bilateral vallecula and hypopharynx. The pre-epiglottic and paraglottic adipose spaces are normal. Normal visualized bilateral piriform sinuses, aryepiglottic folds, vocal cords, and arytenoid-cricoid articulations. Normal subglottic trachea. Normal bilateral lobes of the thyroid gland. Normal visualized pulmonary apices. Normal visualized paranasal sinuses. Normal visualized cervical spine. CT/Soft Tissue Neck WITH Contrast IMPRESSION: Stable examination. No acute abnormality is seen. Electronically Signed: Berhane Stone, at 12:55 EDT , Service support ,
== END ==
PROVIDERS: Family Provider Nurse Practitioner; PCP Nurse Practitioner; Referring Provider Internal Medicine Medical Oncology; Visit Provider Internal Medicine Medical Oncology
DX: Z85.819 Personal history of malignant neoplasm of unspecified site of lip, oral cavity, and pharynx (principal); Z92.21 Personal history of antineoplastic chemotherapy; Z92.3 Personal history of irradiation; Z85.46 Personal history of malignant neoplasm of prostate
CPT/HCPCS: 70491; 71260; Q9967

== ENCOUNTER → 2021-03-08 08:42 | Outpatient (CLI) | payer BC, SELFPAY ==
[2019-08-02 09:26] VITALS: BMI 43.5
[2021-03-08 09:40] LABS: Cholesterol 156 mg/dL (200); High Density Lipoprotein 70 mg/dL; Triglycerides 48 mg/dL; Very Low Density Lipoprotein 10 mg/dL (5-40)
== END ==
PROVIDERS: PCP Nurse Practitioner; Referring Provider Nurse Practitioner; Visit Provider Nurse Practitioner
DX: E78.5 Hyperlipidemia, unspecified (principal)
CPT/HCPCS: 36415; 80061

== ENCOUNTER → 2022-06-01 | Outpatient (CLI) | payer BC, SELFPAY ==
[2022-06-01 18:17] LABS: PSA,Total- Diagnostic 7.88 ng/mL (0.0-4.0)
== END | disposition home or self-care (01) ==
LOC: LAB 16:31
PROVIDERS: PCP Nurse Practitioner Family; Visit Provider Urology
DX: C61 Malignant neoplasm of prostate (principal)
CPT/HCPCS: 36415; 84153

== ENCOUNTER → 2022-06-10 | Outpatient (CLI) | payer BC, SELFPAY ==
--- NOTE | 2022-06-10 14:15 | PET_ITS ---
EXAMINATION: Ga 68 PSMA (PYLARIFY) PET-CT INDICATIONS: A 61-year-old male with history of prostate carcinoma. COMPARISON EXAMINATION: FDG PET-CT study dated 10/23/17 INDEX LESION SIZE PROMISE SCORE SUV INTERPRETATION Abdominal retroperitoneum, bilateral hemipelvis 17.5-mm (largest) 3 11.26 (max) Fulfills quantitative criteria for viable neoplasm TECHNIQUE: Following the intravenous administration of 10.01 mCi of Ga 68 PSMA, via the left antecubital fossa, imaging were acquired using multiple positions along the same length of the patient?s body as the computed tomography examination. Iterative methods were used to reconstruct PET acquisitions. CT images were used accordingly for attenuation correction and anatomic localization. The examination was interpreted using the EANM (Brennon et al., Journal of Nuclear Medicine Molecular Imaging 44:1622, 2017) and PROMISE (Esme et al., Journal of Nuclear Medicine 59:469, 2018) interpretive criteria. HEIGHT:?64?inches?WEIGHT: 285 lbs. PSMA expression score PROMISE criteria: High (3): SUV ? parotid-salivary gland, intermediate (2): SUV ? liver, < parotid gland; low (1): SUV ? blood pool. SUV reference values: Parotid glands 12.1. Normal liver parenchyma 8.7 Blood pool 2.9 FINDINGS: Head/Neck: There is physiologic distribution of the radiopharmaceutical symmetrical defined in the right-left parotid and submandibular glands. There is no evidence of abnormal increased tracer uptake within the context of the visualized cranial vault. CHEST: There is a mild increase in tracer concentration identified in the left thoracic perihilum and subcarinal mediastinum. The calculated maximal standard uptake value is 4.2, greater than blood pool and less than liver and parotid reference. Pertinent chest CT findings are as follows. There is atherosclerotic calcification defined in the thoracic aorta without evidence of dilatation-aneurysm formation. Coronary arterial calcification is observed. Mediastinal soft tissue nodules, as well as bilateral axillary soft tissue reveals no evidence of significant increased radiopharmaceutical. A parenchymal density defined in the right basilar lung field is non-Ga 68 PSMA avid. Abdomen/Pelvis: There is focal increased radiopharmaceutical concentration noted in the left mid to lower retroperitoneum and bilateral hemipelvis. The calculated maximal standard uptake value is 11.26, approximating the parotid reference value for a PROMISE score of 3. The largest metabolic, morphologic abnormality is 17.5-mm. Physiologic radiopharmaceutical concentration is otherwise noted in the hepatic and splenic parenchyma, visualized intestinal tract, right and left kidneys, urinary bladder. Pertinent abdomen and pelvis CT findings are as follows. There is atherosclerotic calcification defined in the abdominal aorta without evidence of dilatation-aneurysm formation. Pelvic arterial calcification is observed. A small fat containing left inguinal hernia is identified. Right and left subcentimeter inguinal soft tissue densities are non-tracer avid. Skeletal: Review of the axial skeletal structures demonstrates no evidence of abnormal increased radiopharmaceutical concentration. PET/PET/CT Tumor Base -Thigh Subs IMPRESSION: 1. ABNORMAL EXAMINATION INDICATIVE OF MALIGNANT VIABLE NEOPLASM. 2. Multiple foci of increased radiopharmaceutical concentration noted in the abdominal retroperitoneum and bilateral hemipelvis fulfill quantitative criteria for viable neoplasm. 3. No other scintigraphic abnormalities are defined. Electronic Signature Khris Simental D.O. Electronically Signed: Khris Simental, at 14:29 EDT ,
== END | disposition home or self-care (01) ==
LOC: ONC 10:26
PROVIDERS: PCP Nurse Practitioner Family; Referring Provider Urology; Visit Provider Urology
DX: C61 Malignant neoplasm of prostate (principal)
CPT/HCPCS: 78815; A9595

== ENCOUNTER → 2022-09-28 | Outpatient (CLI) | payer BC, SELFPAY ==
[2022-09-28 21:07] LABS: PSA,Total- Diagnostic < 0.01 ng/mL (0.0-4.0)
== END | disposition home or self-care (01) ==
PROVIDERS: PCP Nurse Practitioner Family; Referring Provider Urology; Visit Provider Urology
DX: C61 Malignant neoplasm of prostate (principal)
CPT/HCPCS: 36415; 84153

== ENCOUNTER → 2023-01-04 | Outpatient (CLI) | payer BC, SELFPAY ==
[2023-01-04 10:53] LABS: PSA,Total- Diagnostic < 0.01 ng/mL (0.0-4.0)
== END | disposition home or self-care (01) ==
LOC: LAB 08:43
PROVIDERS: PCP Nurse Practitioner Family; Referring Provider Urology; Visit Provider Urology
DX: C61 Malignant neoplasm of prostate (principal)
CPT/HCPCS: 36415; 84153

== ENCOUNTER → 2023-04-06 | Outpatient (CLI) | payer BC, SELFPAY ==
[2023-04-06 09:14] LABS: PSA,Total- Diagnostic < 0.01 ng/mL (0.0-4.0)
== END | disposition home or self-care (01) ==
LOC: LAB 08:16
PROVIDERS: PCP Nurse Practitioner Family; Referring Provider Registered Nurse; Visit Provider Registered Nurse
DX: C61 Malignant neoplasm of prostate (principal)
CPT/HCPCS: 36415; 84153

== ENCOUNTER → 2023-07-19 | Outpatient (CLI) | payer BC, SELFPAY ==
[2023-07-19 08:37] LABS: PSA,Total- Diagnostic < 0.01 ng/mL (0.0-4.0)
== END | disposition home or self-care (01) ==
LOC: LAB 07:27
PROVIDERS: PCP Nurse Practitioner Family; Referring Provider Urology; Visit Provider Urology
DX: C61 Malignant neoplasm of prostate (principal)
CPT/HCPCS: 36415; 84153

== ENCOUNTER → 2023-10-19 | Outpatient (CLI) | payer OTHER, SELFPAY ==
--- NOTE | 2023-10-19 08:55 | BD_ITS ---
STUDY: DUAL ENERGY X-RAY ABSORPTIOMETRY / DXA REASON FOR EXAM: Male, 63 years old. HIGH RISK MEDS TECHNIQUE: Bone Mineral Density (BMD) measurements of lumbar spine and bilateral hips were obtained. COMPARISON: None. FINDINGS: Lumbar Spine (L1-L4): g/cm2 (0.793) / T-score (-2.7) / Z-score (-2.0) Findings are suggestive of osteoporosis with a high fracture risk. Left Femur Total: g/cm2 (0.895) / T-score (-0.9) / Z-score (-0.4) Left Femoral Neck: g/cm2 (0.696) / T-score (-1.7) / Z-score (-0.7) Right Femur Total: g/cm2 (0.944) / T-score (-0.6) / Z-score (-0.1) Right Femoral Neck: g/cm2 (0.737) / T-score (-1.4) / Z-score (-0.4) BD/Dexa Bone Density Study IMPRESSION: The patient is considered osteoporotic as outlined below according to World Sunil Organization (WHO) criteria with a high fracture risk. Reference Information: The T-score is the number of standard deviations above or below the standard which is normal for young adults at their peak bone mineral density. The World Health Organization (WHO) interprets the T-scores as follows: Above -1 Normal bone density Between -1 and -2.5 Osteopenia Equal to / or below -2.5 Osteoporosis As a practical clinical guideline, osteopenia may be graded as follows: Mild -1 through -1.5 Moderate -1.6 through -2.0 Severe -2.1 through -2.4 The Z-score is the number of standard deviations above or below age-matched controls. A Z-score of less than -1.5 would be considered abnormal. References: 1. NIH Osteoporosis and Related Bone Diseases www osteo.org 2. International Society for Clinical Densitometry www iscd.org 3. National Osteoporosis Foundation www nof.org Electronically Signed: Berhane Stone MD at 11:55 EST ,
[2023-10-19 09:48] LABS: PSA,Total- Diagnostic < 0.01 ng/mL (0.0-4.0)
== END | disposition home or self-care (01) ==
LOC: OPBD 08:39
PROVIDERS: Nurse Practitioner; PCP Nurse Practitioner Family; Referring Provider Nurse Practitioner Family; Visit Provider Nurse Practitioner Family
DX: C61 Malignant neoplasm of prostate (principal); M81.0 Age-related osteoporosis without current pathological fracture
CPT/HCPCS: 36415; 77080; 84153

== ENCOUNTER → 2024-01-24 | Outpatient (CLI) | payer OTHER, SELFPAY ==
[2024-01-24 09:18] LABS: PSA,Total- Diagnostic < 0.01 ng/mL (0.0-4.0)
== END | disposition home or self-care (01) ==
LOC: LAB 07:42
PROVIDERS: PCP Nurse Practitioner Family; Referring Provider Urology; Visit Provider Urology
DX: C61 Malignant neoplasm of prostate (principal)
CPT/HCPCS: 36415; 84153

== ENCOUNTER → 2024-05-01 | Outpatient (CLI) | payer OTHER, SELFPAY ==
[2024-05-01 09:34] LABS: PSA,Total- Diagnostic < 0.01 ng/mL (0.0-4.0)
== END | disposition home or self-care (01) ==
PROVIDERS: PCP Nurse Practitioner Family; Referring Provider Nurse Practitioner; Visit Provider Nurse Practitioner
DX: C61 Malignant neoplasm of prostate (principal)
CPT/HCPCS: 36415; 84153

== ENCOUNTER → 2024-05-09 | Outpatient (CLI) | payer OTHER, SELFPAY ==
--- NOTE | 2024-05-09 07:30 | PET_ITS ---
EXAMINATION: 18 F Pylarify PET-CT HISTORY: A 63-year-old male with history of prostate carcinoma presenting for restaging examination. COMPARISON EXAMINATION: Previous Pylarify study dated 06/10/22 TECHNIQUE: Following the intravenous administration of 8.75 mCi of 18 F Pylarify via the left antecubital fossa, image acquisitions of the head, neck, chest, abdomen and pelvis to the level of the mid thigh at 73 minutes post-tracer distribution reveal: The examination was interpreted using the EANM (Brennon et al., Journal of Nuclear Medicine Molecular Imaging 44:1622, 2017) and PROMISE (Eirobby et al., Journal of Nuclear Medicine 59:469, 2018) interpretive criteria. HEIGHT: 64 inches. WEIGHT: 285 lbs. PSMA expression score PROMISE criteria: High (3): SUV ? parotid-salivary gland, intermediate (2): SUV ? liver, low (1): > blood pool, < liver, (0): < blood pool. SUV reference values: Parotid glands 14.66/12.1. Normal liver parenchyma 8.9/8.7. Blood pool 2.5/2.9. FINDINGS: Head/Neck: Symmetric radiotracer concentration is defined in the bilateral parotid and submandibular glands. There is physiologic tracer activity within the context of the nasal cavity. There is no evidence of abnormal increased radiopharmaceutical concentration within the context of the cranial vault. CHEST: There is no evidence of abnormal increased radiotracer within the context of the bilateral hemithorax pulmonary parenchyma, mediastinal structures and right-left thoracic perihilum. Pertinent chest CT findings are as follows. There is atherosclerotic calcification defined in the thoracic aorta without evidence of dilatation-aneurysm formation. Coronary arterial calcification is observed. Bilateral axillary soft tissue densities are ametabolic. Abdomen/Pelvis: Physiologic radiopharmaceutical concentration is otherwise noted in the hepatic and splenic parenchyma, visualized intestinal tract, right and left kidneys, urinary bladder. The previously identified abdominal retroperitoneal hypermetabolic foci are not apparent on the current examination. Review of CT of the abdomen and pelvis reveals the following. Right and left inguinal soft tissue densities with fatty hilus formation are non-tracer avid. There is atherosclerotic calcification defined in the abdominal aorta without evidence of dilatation-aneurysm formation. Pelvic arterial calcification is observed. The previously identified abdominal retroperitoneal hypermetabolic soft tissue densities are not apparent on the current examination. SKELETAL: There are no well-defined sclerotic-lytic changes manifest on review of the appendicular-axial skeletal structures. PET/PET/CT Tumor Base -Thigh Subs IMPRESSION: 1. NEGATIVE EXAMINATION. There is no definitive quantitative scintigraphic evidence of viable neoplasm. 2. The prior defined abdominal retroperitoneal hypermetabolic foci are not apparent on the current examination. 3. Overall, compared to the prior F-18 Pylarify PET-CT examination dated 06/10/22, there is current absence of defined viable neoplastic disease. Electronic Signature Khris Simental DO Accurate Quantification of SUVs and standardized PROMISE scores for this report are calculated using the exclusive [employer], ([place] Patent No. [id number] [phone] [phone] [place] patent [phone] ). Standardization and correction of the FDG SUV metric exclusively available with [employer] intellectual property, allow for vendor non-specific objective quantitative sequential FDG PET-CT comparison and otherwise unobtainable optimization of the sensitivity and specificity of the examination. https://[facility] Electronically Signed: Khris Simental DO at 11:48 EDT ,
== END | disposition home or self-care (01) ==
PROVIDERS: PCP Nurse Practitioner Family; Referring Provider Urology; Visit Provider Urology
DX: C61 Malignant neoplasm of prostate (principal); R97.21 Rising PSA following treatment for malignant neoplasm of prostate
CPT/HCPCS: 78815; A9595

== ENCOUNTER → 2024-08-07 | Outpatient (CLI) | payer OTHER, SELFPAY ==
[2024-08-07 08:37] LABS: PSA,Total- Diagnostic < 0.01 ng/mL (0.0-4.0)
== END | disposition home or self-care (01) ==
LOC: LAB 07:11
PROVIDERS: PCP Nurse Practitioner Family; Referring Provider Nurse Practitioner; Visit Provider Nurse Practitioner
DX: C61 Malignant neoplasm of prostate (principal)
CPT/HCPCS: 36415; 84153; 84403

== ENCOUNTER → 2024-11-13 | Outpatient (CLI) | payer OTHER, SELFPAY ==
[2024-11-13 08:46] LABS: PSA,Total- Diagnostic < 0.01 ng/mL (0.0-4.0)
== END | disposition home or self-care (01) ==
LOC: LAB 07:23
PROVIDERS: PCP Nurse Practitioner Family; Referring Provider Urology; Visit Provider Urology
DX: C61 Malignant neoplasm of prostate (principal)
CPT/HCPCS: 36415; 84153; 84403

== ENCOUNTER → 2025-02-02 | Outpatient (CLI) | payer OTHER, SELFPAY ==
[2025-02-02 11:27] LABS: PSA,Total- Diagnostic < 0.02 ng/mL (0.00-4.00)
== END | disposition home or self-care (01) ==
LOC: LAB 09:25
PROVIDERS: PCP Nurse Practitioner Family; Referring Provider Urology; Visit Provider Urology
DX: C61 Malignant neoplasm of prostate (principal)
CPT/HCPCS: 36415; 84153; 84403

== ENCOUNTER → 2025-05-08 | Outpatient (CLI) | payer OTHER, SELFPAY ==
[2025-05-08 10:27] LABS: PSA,Total - Annual Screen 0.07 ng/mL (0.02-4.00)
== END | disposition home or self-care (01) ==
LOC: LAB 09:21
PROVIDERS: PCP Nurse Practitioner Family; Referring Provider Nurse Practitioner; Visit Provider Nurse Practitioner
DX: C61 Malignant neoplasm of prostate (principal)
CPT/HCPCS: 36415; 84153; 84403; G0103

== ENCOUNTER → 2025-08-15 | Outpatient (CLI) | payer OTHER, SELFPAY ==
[2025-08-15 14:15] LABS: PSA,Total- Diagnostic 0.31 ng/mL (0.00-4.00)
== END | disposition home or self-care (01) ==
LOC: LAB 12:28
PROVIDERS: PCP Nurse Practitioner Family; Referring Provider Urology; Visit Provider Urology
DX: C61 Malignant neoplasm of prostate (principal)
CPT/HCPCS: 36415; 84153